=== PATIENT | female | born 1995 | race Caucasian/White ===

== ENCOUNTER 2017-05-01 07:56 | Emergency (ER) | payer OTHER ==
--- NOTE | 2017-05-01 08:06 | EDPHY ---
H & P Stated Complaint: Wants psych eval; SI;took OTC sleep meds on Monday Time Seen by Provider: 05/01/17 08:06 - Personal History LMP (Females 10-55): Now Current Tetanus Diphtheria and Acellular Pertussis (TDAP): Yes - Medical/Surgical History Other PMH: Depression - Social History Smoking Status: Never smoked Constitutional: Initial Vital Signs Temperature (C) 36.8 C 05/01/17 07:57 Heart Rate 77 05/01/17 07:57 Respiratory Rate 18 05/01/17 07:57 Blood Pressure 140/100 H 05/01/17 07:57 O2 Sat (%) 96 05/01/17 07:57 O2 Delivery Mode Room Air Allergies/Adverse Reactions: No Known Allergies Allergy (Unverified 05/01/17 08:02) Home Medications: Medication Instructions Recorded [facility] 05/01/17 Medical Decision Making ED Course/Re-evaluation: CHIEF COMPLAINT: Psychiatric evaluation HISTORY OF PRESENT ILLNESS: This patient is a healthy 21 year old female arriving of her own volition for evaluation of suicidal ideation. She states she has had a diagnosis of depression for the last 4.5 years, and has had "difficulty with self-harm" in the past, but has not attempted suicide. She reports taking "a bunch of sleeping pills over the weekend", and clarifies that she had taken multiple diphenhydramine sleeping pills on Monday. She states she slept for about 24 hours, and denies taking any other medications or substances. She states she is unsure what her intent was in taking these pills. She denies attempting to harm herself with any other methods. REVIEW OF SYSTEMS: A 10 point review of systems was performed and is negative with the exception of the elements mentioned in the history of present illness. PHYSICAL EXAM: General Appearance: Alert, well hydrated, appropriate, and non-toxic appearing. Head: Atraumatic without scalp tenderness or obvious injury Eyes: Pupils equal, round, reactive to light and accommodation, EOMI, no trauma , no injection. Ears: Clear bilaterally, no perforation, normal landmarks Nose: Atraumatic, no rhinorrhea, clear. Throat: There is no erythema or exudates, no lesions, normal tonsils, mucus membranes moist. Neck: Supple, nontender, no lymphadenopathy. Respiratory: No retractions, no distress, no wheezes, and no accessory muscle use. Lungs are clear to auscultation bilaterally. Cardiovascular: Regular rate and rhythm, no murmurs, rubs, or gallops. Good capillary refill all extremities. Gastrointestinal: Abdomen is soft, nontender, non-distended, no masses, no rebound, no guarding, no peritoneal signs. Musculoskeletal: Normal active ROM of all extremities, atraumatic. Neurological: Alert, appropriate, and interactive. Nonfocal neuro exam. Skin: No rashes, good turgor, no nodules on palpation. Past medical history: Depression ([facility]) Past surgical history: Noncontributory Family history: Noncontributory Social history: Originally from [place]. DIFFERENTIAL DIAGNOSIS: The differential diagnosis for the patient's depression included but was not limited to functional and major depression, situational depression, medication side effect, drugs, and alcohol abuse. MEDICAL DECISION MAKING: Patient is in no acute distress and is hemodynamically stable. We are awaiting psychiatric team's evaluation. Patient has known history of psychiatric disorders and is here for evaluation. Yaniv, mental health construction site crossing guard, recommends discharge home with outpatient follow up. Return precautions given. - Data Points Laboratory Results: Laboratory Results 05/01/17 08:20 05/01/17 08:20 05/01/17 05/01/17 05/01/17 08:20 08:20 08:20 WBC RBC Hgb Hct MCV MCH MCHC RDW Plt Count MPV Neut % (Auto) Lymph % (Auto) Sterling % (Auto) Eos % (Auto) Baso % (Auto) Nucleat RBC Rel Count Absolute Neuts (auto) Absolute Lymphs (auto) Absolute Monos (auto) Absolute Eos (auto) Absolute Basos (auto) Absolute Nucleated RBC Immature Gran % Immature Gran # Sodium 141 mEq/L mEq/L (134-144) Potassium 4.1 mEq/L mEq/L (3.5-5.2) Chloride 105 mEq/L mEq/L (97-110) Carbon Dioxide 23 mEq/l mEq/l (22-31) Anion Gap 13 mEq/L mEq/L (8-16) BUN 14 mg/dL mg/dL (7-23) Creatinine 0.8 mg/dL mg/dL (0.6-1.0) Estimated GFR > 60 Glucose 121 mg/dL H mg/dL (70-100) Calcium 10.1 mg/dL mg/dL (8.5-10.4) Beta HCG, Qual NEGATIVE Salicylates < 1.0 mg/dL L mg/dL (2.0-20.0) Urine Opiates Screen NEGATIVE (NEGATIVE) Acetaminophen < 10 mcg/mL L mcg/mL (10.0-30.0) Urine Barbiturates NEGATIVE (NEGATIVE) Ur Phencyclidine Scrn NEGATIVE (NEGATIVE) Ur Amphetamine Screen NEGATIVE (NEGATIVE) U Benzodiazepines Scrn NEGATIVE (NEGATIVE) Urine Cocaine Screen NEGATIVE (NEGATIVE) U Marijuana (THC) Screen NEGATIVE (NEGATIVE) Ethyl Alcohol < 10 mg/dL mg/dL (0-10) 05/01/17 08:20 WBC 8.89 10^3/uL 10^3/uL (3.80-9.50) RBC 5.31 10^6/uL 10^6/uL (4.18-5.33) Hgb 16.0 g/dL g/dL (12.6-16.3) Hct 47.2 % H % (38.0-47.0) MCV 88.9 fL fL (81.5-99.8) MCH 30.1 pg pg (27.9-34.1) MCHC 33.9 g/dL g/dL (32.4-36.7) RDW 12.1 % % (11.5-15.2) Plt Count 259 10^3/uL 10^3/uL (150-400) MPV 9.3 fL fL (8.7-11.7) Neut % (Auto) 58.4 % % (39.3-74.2) Lymph % (Auto) 31.7 % % (15.0-45.0) Sterling % (Auto) 8.5 % % (4.5-13.0) Eos % (Auto) 0.8 % % (0.6-7.6) Baso % (Auto) 0.4 % % (0.3-1.7) Nucleat RBC Rel Count 0.0 % % (0.0-0.2) Absolute Neuts (auto) 5.18 10^3/uL 10^3/uL (1.70-6.50) Absolute Lymphs (auto) 2.82 10^3/uL 10^3/uL (1.00-3.00) Absolute Monos (auto) 0.76 10^3/uL 10^3/uL (0.30-0.80) Absolute Eos (auto) 0.07 10^3/uL 10^3/uL (0.03-0.40) Absolute Basos (auto) 0.04 10^3/uL 10^3/uL (0.02-0.10) Absolute Nucleated RBC 0.00 10^3/uL 10^3/uL (0-0.01) Immature Gran % 0.2 % % (0.0-1.1) Immature Gran # 0.02 10^3/uL 10^3/uL (0.00-0.10) Sodium Potassium Chloride Carbon Dioxide Anion Gap BUN Creatinine Estimated GFR Glucose Calcium Beta HCG, Qual Salicylates Urine Opiates Screen Acetaminophen Urine Barbiturates Ur Phencyclidine Scrn Ur Amphetamine Screen U Benzodiazepines Scrn Urine Cocaine Screen U Marijuana (THC) Screen Ethyl Alcohol Departure - Departure Disposition: Home, Routine, Self-Care Clinical Impression: Suicidal ideation Depression Qualifiers: Depression Type: other depression Qualified Code(s): F32.89 - Other specified depressive episodes Condition: Good Instructions: Suicide Prevention for Adults (ED), Depression (ED) Additional Instructions: Follow up with the resources provided by mental health construction site crossing guard. Return to the ED for any worsening of condition. Referrals: DHAVAL GUTIÉRREZ MD [Other] - As per Instructions [facility],. [Clinic] - As per Instructions
[2017-05-01 08:43] VITALS: PULSE 72; RESP 16
[2017-05-01 08:43] LABS: % IMMATURE GRANULYOCYTES 0.2 % (0.0-1.1); ABSOLUTE IMMATURE GRANULOCYTES 0.02 10^3/uL (0.00-0.10); ADD DIFF? NO; ADD MORPH? NO; ADD SCAN? NO; ATYPICAL LYMPHOCYTE FLAG 10 (0-99); FRAGMENT RBC FLAG 0 (0-99); HEMATOCRIT 47.2 % (38.0-47.0); LEFT SHIFT FLG 0 (0-99); LIPEMIA HEMOLYSIS FLAG 90 (0-99); MEAN CELL HEMOGLOBIN 30.1 pg (27.9-34.1); MEAN CELL HEMOGLOBIN CONCENTR. 33.9 g/dL (32.4-36.7); MEAN CELL VOLUME 88.9 fL (81.5-99.8); MEAN PLATELET VOLUME 9.3 fL (8.7-11.7); PLATELET CLUMPS FLAG 0 (0-99); PLATELET COUNT 259 10^3/uL (150-400); RED BLOOD CELL COUNT 5.31 10^6/uL (4.18-5.33); RED CELL DISTRIBUTION WIDTH 12.1 % (11.5-15.2)
[2017-05-01 09:03] LABS: ANION GAP 13 mEq/L (8-16); CALCIUM 10.1 mg/dL (8.5-10.4); CARBON DIOXIDE 23 mEq/l (22-31); CHLORIDE 105 mEq/L (97-110); CREATININE 0.8 mg/dL (0.6-1.0); ETHANOL SERUM < 10 mg/dL (0-10); GLOMERULAR FILTRATION RATE > 60; GLUCOSE 121 mg/dL (70-100); POTASSIUM 4.1 mEq/L (3.5-5.2); SALICYLATE < 1.0 mg/dL (2.0-20.0); SODIUM 141 mEq/L (134-144)
[2017-05-01 12:07] VITALS: BP 124/89; TEMP 98.4; O2SAT 94
== END 2017-05-01 12:07 | disposition home or self-care (01) ==
DX: R45.851 Suicidal ideations (principal); F32.89 Other specified depressive episodes
CPT/HCPCS: 80305; G0480